=== PATIENT | female | born 1965 | race Caucasian/White ===

== ENCOUNTER 2016-06-26 11:38 | Emergency (ER) | payer SELFPAY ==
--- NOTE | 2016-06-28 08:22 | ER ---
ADMIT: 06/26/2016 RM/LOC: ER [facility] MR#: [id number] [address] ROBERT [place] [address] [place] [address] Emergency Room Report SEX: F AGE: 51 : 1965 DATE: 06/26/2016 TIME: 1138 hours. PRIMARY CARE: [facility]. Please refer to my T-sheet for complete H and P. HISTORY OF PRESENT ILLNESS: Briefly, the patient is a 51-year-old, for couple days, she has had a rash on her right leg. There are two spots, one a little bit below her knee in the inside and the other was on the inside of her thigh up higher. No other complaints. They do hurt. She is in for evaluation. PHYSICAL EXAMINATION: VITAL SIGNS: Stable. Her right leg reveals a small two areas of rash. There is small grouped vesicles. NEUROVASCULAR: Intact distally. EMERGENCY DEPARTMENT COURSE: Uneventful. ASSESSMENT: Right leg rash/herpetic lesion. PLAN: Acyclovir 800 t.i.d. for 7 days, Frost 5, gave her script for 15. Return if worse. Follow up with [facility] next week for recheck. Isai Henry MD/ kirbyl JOB #: [id number] CC: Isai Henry MD, Attending Physician Jose Mckinney MD, Family Physician
== END 2016-06-26 12:20 | disposition home or self-care (01) ==
LOC: ER 11:38
DX: B00.9 Herpesviral infection, unspecified (principal); F17.210 Nicotine dependence, cigarettes, uncomplicated; Z88.6 Allergy status to analgesic agent; Z88.8 Allergy status to other drugs, medicaments and biological substances

== ENCOUNTER 2016-07-17 20:07 | Emergency (ER) | payer SELFPAY ==
--- NOTE | 2016-07-18 22:54 | ER ---
ADMIT: 07/17/2016 RM/LOC: ER [facility] MR#: [id number] [address] ROBERT [place] [address] [place] [address] Emergency Room Report SEX: F AGE: 51 : 1965 DATE: 07/17/2016 The patient is a 51-year-old female, status post Sakina-en-Y gastric bypass, cholecystectomy, appendectomy, tricuspid pig valve replacement, mechanical aortic valve replacement, chronically anticoagulated. Complains of persistent left lower quadrant pain associated with urgency and chills. Denies any asia fever, hematochezia, or vomiting. Exam remarkable for nontoxic, afebrile, acutely uncomfortable female minimally tender left lower quadrant. CT abdomen and pelvis confirms diverticulosis. Minimal changes of colitis. UA negative. Normal CBC, CMP, lactic acid, and CRP. INR 1.25. Troponin less than 0.15. The patient given IV fluid, Zofran, Dilaudid, and Protonix with marked improvement of pain. Home with hydrocodone 5/325 as needed #20 plus 6, Cipro 500 mg p.o. in department b.i.d. x10 days, metronidazole 500 mg p.o. in department and t.i.d. x10 days. Clear liquid diet. Advance as tolerated to high soluble fiber diet. Follow up with [facility] next week. Dylan Farris MD/ kirbyl JOB #: [id number] CC: Dylan Farris MD, Attending Physician Faraz Weaver MD, Family Physician . [facility]
== END 2016-07-17 22:25 | disposition home or self-care (01) ==
LOC: ER 20:07
DX: K57.92 Diverticulitis of intestine, part unspecified, without perforation or abscess without bleeding (principal); F17.210 Nicotine dependence, cigarettes, uncomplicated; I73.9 Peripheral vascular disease, unspecified; Z98.890 Other specified postprocedural states; Z79.01 Long term (current) use of anticoagulants; Z88.6 Allergy status to analgesic agent; Z88.1 Allergy status to other antibiotic agents